=== PATIENT | male | born 1975 | race Caucasian/White ===

== ENCOUNTER → 2023-12-03 14:57 | Outpatient (REF) | payer BC, SELFPAY | LOC: HWRAD 14:57 | PROVIDERS: ATTENDING PHYSICIAN Physician Assistant Medical | DX: R05.1 Acute cough (principal) | CPT/HCPCS: 71046 ==

== ENCOUNTER 2025-04-14 06:20 | Day surgery (SDC) | payer BC, SELFPAY | END 2025-04-14 09:40 | disposition home or self-care (01) | LOC: GI 06:20 | PROVIDERS: ATTENDING PHYSICIAN Internal Medicine Gastroenterology | DX: Z12.11 Encounter for screening for malignant neoplasm of colon (principal); K62.89 Other specified diseases of anus and rectum | CPT/HCPCS: 45380; 88305 ==

== ENCOUNTER → 2025-06-02 13:31 | Outpatient (REF) | payer BC, SELFPAY | LOC: HWRAD 13:31 | PROVIDERS: FAMILY PHYSICIAN Physician Assistant Medical | DX: M54.2 Cervicalgia (principal); M54.12 Radiculopathy, cervical region; M54.16 Radiculopathy, lumbar region | CPT/HCPCS: 72050; 72110 ==